=== PATIENT | male | born 1945 | race Two or more races ===

== ENCOUNTER 2016-12-26 10:26 | Emergency (ER) | payer MEDICARE, MEDICAID ==
[~2016-12-26] VITALS: Ht 165.1 cm; Wt 68.0 kg
[2016-12-26 10:57] LABS: BASOPHILS % (AUTO) 1.5 % (0.0-2.0); EOSINOPHILS % (AUTO) 8.1 % (0.0-3.0); LYMPHOCYTES % (AUTO) 41.2 % (20.0-45.0); MEAN CORPUSCULAR HEMOGLOBIN 29.6 PG (27.0-31.0); MEAN CORPUSCULAR HGB CONC 33.5 G/DL (32.0-36.0); MEAN CORPUSCULAR VOLUME 88 FL (80-99); MEAN PLATELET VOLUME 6.4 FL (6.5-10.1); MONOCYTES % (AUTO) 9.5 % (1.0-10.0); NEUTROPHILS % (AUTO) 39.7 % (45.0-75.0); PLATELET COUNT 217 K/UL (150-450); RED BLOOD COUNT 3.33 M/UL (4.70-6.10); RED CELL DISTRIBUTION WIDTH 12.3 % (11.6-14.8); WHITE BLOOD COUNT 3.5 K/UL (4.8-10.8)
[2016-12-26 11:12] LABS: TROPONIN I < 0.30 ng/mL (<=0.30)
[2016-12-26 11:15] VITALS: BP 128/48
[2016-12-26 11:15] LABS: ALANINE AMINOTRANSFERASE 13 U/L (3-41); ALBUMIN/GLOBULIN RATIO 1.8 (1.0-2.7); ANION GAP 16 (5-15); ASPARTATE AMINO TRANSFERASE 24 U/L (5-40); CALCIUM 9.6 mg/dL (8.6-10.2); CARBON DIOXIDE 22 mEQ/L (20-30); CHLORIDE 87 mEQ/L (98-107); CREATININE 1.7 mg/dL (0.7-1.2); HEMOLYSIS 9; POTASSIUM 3.5 mEQ/L (3.4-4.9); SODIUM 125 mEQ/L (135-145); TOTAL PROTEIN 6.8 g/dL (6.6-8.7)
[2016-12-26 11:18] LABS: REFLEX LACTIC ACID YES OR NO YES
--- NOTE | 2016-12-26 11:20 | Diagnostic Imaging Report ---
Indications: Mental status Technique: Continuous helical CT imaging of the brain was performed with automatic exposure control on a Siemens sensation [address] scanner. Axial and coronal images were reconstructed at 5 mm slice thickness and interval. CTDI volume(s): 70 mGy Total DLP: 1340 mGy-cm Findings: Comparison: None Mild low attenuation is present in the bilateral periventricular white matter. Ventricles, cisterns, and sulci are diffusely prominent. No evidence of mass or hemorrhage, mass effect, midline shift, hydrocephalus, or increased intracranial pressure. Bone window images are unremarkable. Mild mucoperiosteal thickening scattered throughout paranasal sinuses. Bilateral mastoid air cells hypoplastic.. IMPRESSION: No evidence of acute intracranial pathology Bilateral cerebral periventricular white matter low attenuation, nonspecific, likely chronic microvascular ischemic in nature. Age-appropriate atrophy. Mild sinus disease The CT scanner at [facility] is accredited by the [employer] and the scans are performed using protocols designed to limit radiation exposure to as low as reasonably achievable to attain images of sufficient resolution adequate for diagnostic evaluation.
[2016-12-26 11:26] LABS: CKMB 3.7 ng/mL (< 6.7)
--- NOTE | 2016-12-26 12:06 | Diagnostic Imaging Report ---
\H\CT THORAX\N\ Indications: Chest pain Technique: Continuous helical CT imaging of the thorax was performed with automatic exposure control on a Siemens sensation [address] scanner. Axial images were reconstructed at 5 mm slice thickness and interval. Coronal images were reconstructed at 5 mm slice thickness. No IV contrast was administered secondary to elevated creatinine level. CTDI volume(s): 15 mGy Total DLP: 1002 mGy-cm (Includes CT abdomen pelvis) Findings: Comparison: None Lack of IV contrast limits evaluation of vascular structures. Sternal wires, cardiomediastinal surgical clips are present. Scattered arterial mural calcifications including coronary artery involvement. Heart is normal in size. Proximal segment main pulmonary artery is prominent. Distal segment, right and left pulmonary arteries are normal in caliber and configuration. Ascending aorta maximum diameter 42 mm. Arch, descending aorta normal caliber. No pericardial abnormality. No obvious mediastinal or hilar enlarged lymph nodes. Lungs normally, symmetrically inflated. Irregular pleural-based linear densities and dependent portions of both lungs. 10 mm smoothly marginated noncalcified nodule superior segment right lower lobe (7-56). No pleural abnormality. Chest wall soft tissues nonfocal. Disc margin osteophytes lower thoracic spine. IMPRESSION: No evidence of acute thoracic pathology, limited as described 10 mm noncalcified nodules for segment right lower lobe. Per Fleischner Society recommendations, followup CT scan in 3 months and/or PET-CT scan recommended. Bilateral pulmonary lower lobe subsegmental atelectasis versus scarring Previous open heart surgery Segmental prominence proximal main pulmonary artery, nonspecific. Echocardiographic correlation suggested. 4.2 cm fusiform aneurysmal dilation of the ascending aorta Arteriosclerosis Degenerative spondylosis \H\CT ABDOMEN PELVIS\N\ Indications: Abdominal pain Technique: Continuous helical CT imaging of the abdomen and pelvis was performed with automatic exposure control on a Siemens sensation [address] scanner. Axial, coronal, sagittal images reconstructed at 3 mm slice thickness. No IV contrast was administered due to elevated creatinine level. No oral was administered per requesting physician's order, despite no contraindications listed. CTDI volume(s): As above mGy Total DLP: As above mGy-cm Findings: Comparison: None Lack of oral and IV contrast limits evaluation. Stomach mildly distended with air-fluid level, calcific foci in dependent portion of lumen likely representing ingested tablets. Remainder of tract nondilated throughout. Normal caliber appendix contains high attenuation foci, otherwise unremarkable. Multiple right colonic diverticula. Segments of colon collapsed, limiting evaluation. No other obvious mural thickening, adjacent stranding, extraluminal gas or fluid collections. Prominent arterial mural calcifications. Aortobifemoral bypass graft. Vascular patency indeterminate. Urinary bladder collapsed.. Mural thickening not excludable. Paraumbilical ventral, small left inguinal hernias containing only fat. 4 x 2.5 x 2.5 cm low-attenuation mass versus fluid collection in right inguinal canal. Remainder visualized pelvic anatomy demonstrates no other obvious acute abnormality. Disc marginal osteophytes throughout lumbar spine. Multilevel disc space narrowing with vacuum phenomenon. IMPRESSION: No evidence of acute abdominopelvic disease, with limitation as described. Subtle but potentially significant abnormalities may be missed. Repeat CT scan with full oral and IV contrast preparation recommended for more complete evaluation, as clinically indicated Prior aortobifemoral bypass graft surgery, patency indeterminate Arteriosclerosis, patency indeterminate Colonic diverticulosis Appendiceal retained barium vers -- us appendicoliths. No acute inflammation. Apparent mural thickening of urinary bladder--underdistention versus hypertrophy versus cystitis Right inguinal canal mass most likely undescended/retracted testis. Correlate clinically. Degenerative spondylosis Small fat-containing ventral, inguinal hernias
[2016-12-26 13:10] VITALS: BP 148/91
[2016-12-26 13:23] LABS: APPEARANCE,URINE CLEAR; KETONES,URINE NEGATIVE (NEGATIVE); LEUKOCYTE ESTERASE ,URINE 1+ (NEGATIVE); NITRITE,URINE NEGATIVE (NEGATIVE); PH,URINE 8 (4.5-8.0); PROTEIN,URINE 2+ (NEGATIVE); UROBILINOGEN,URINE NORMAL MG/DL (0.0-1.0)
[2016-12-26] MEDS ORDERED: Albuterol ud Inhalation HHN PRN (13:30)
[2016-12-26] MEDS ORDERED: Morphine Sulfate 4mg/ml Inj IVP PRN (13:30)
[2016-12-26 13:33] LABS: BACTERIA,URINE FEW /HPF; RBC,URINE 0-2 /HPF (0 - 0); SQUAMOUS EPITHELIAL CELL,UR OCCASIONAL /LPF (NONE/OCC)
--- NOTE | 2016-12-26 13:57 | Emergency Room Report ---
History of Present Illness General Chief Complaint: Altered Mental Status Source: Patient Present Illness HPI 71-year-old male presents ED for evaluation. Per EMS patient was found diaphoretic and altered on the bus today. Patient is a poor historian. Does not endorse chest pain or shortness of breath. Patient states he feels weak. Denies fevers or chills. No other aggravating or relieving factors. Denies any other associated symptoms Allergies: Coded Allergies: UNABLE TO ASSESS (Unverified , 12/26/16) Patient History Past Medical History: none Past Surgical History: none Pertinent Family History: none Social History: Denies: alcohol use, drug use, smoking Immunizations: UTD Reviewed Nursing Documentation: PMH: Agreed, PSxH: Agreed Nursing Documentation-PMH Past Medical History Deferred: Pt Cognitively Impaired Review of Systems All Other Systems: negative except mentioned in HPI Physical Exam Vital Signs Date Time Temp Pulse Resp B/P Pulse Ox O2 Delivery O2 Flow Rate FiO2 12/26/16 10:23 97.3 50 16 103/61 99 Nasal Cannula 2.0 Sp02 EP Interpretation: reviewed, normal General Appearance: no apparent distress, alert, GCS 15, non-toxic Head: normocephalic, atraumatic Eyes: bilateral eye PERRL, bilateral eye normal inspection ENT: hearing grossly normal, normal pharynx, no angioedema, normal voice Neck: full range of motion, supple/symm/no masses Respiratory: chest non-tender, lungs clear, normal breath sounds, speaking full sentences Cardiovascular #1: regular rate, rhythm, no edema Cardiovascular #2: 2+ carotid (R), 2+ carotid (L), 2+ radial (R), 2+ radial (L) , 2+ dorsalis pedis (R), 2+ dorsalis pedis (L) Gastrointestinal: normal bowel sounds, non tender, soft, non-distended, no guarding, no rebound Rectal: deferred Genitourinary: normal inspection, no CVA tenderness Musculoskeletal: back normal, gait/station normal, normal range of motion, non- tender Neurologic: alert, oriented x3, responsive, motor strength/tone normal, sensory intact, speech normal Psychiatric: judgement/insight normal, memory normal, mood/affect normal, no suicidal/homicidal ideation Reflexes: 3+ bicep (R), 3+ bicep (L), 3+ tricep (R), 3+ tricep (L), 3+ knee (R) , 3+ knee (L) Skin: normal color, no rash, warm/dry, well hydrated Lymphatic: no adenopathy Medical Decision Making Diagnostic Impression: Primary Impression: Altered mental status Qualified Codes: R41.82 - Altered mental status, unspecified Additional Impressions: Bradycardia Sepsis Qualified Codes: A41.9 - Sepsis, unspecified organism Renal insufficiency ER Course Hospital Course 71-year-old male presents ED complaining of diaphoresis, altered Differential diagnoses include: NH/unstable angina, contusion, muscle strain, PTX, rib fracture Clinical course Patient placed on stretcher. on manager animation. After initial history and physical I ordered labs, EKG, chest x-ray, IVFs labs reviewed- leukopenia noted, Hb/HCt stable, BUN/Cr elevated ,trop negative, BNP ok, lactic elevated EKG - sinus bradycardia with 1st degree av block Chest x-ray- unremarkable CT head - ok CT Chest/abd/Pelvis ok 30cc/kg fluid bolus given. abx given. Case discussed with Dr. Silva and he agreed to accept the patient to his service for further care and support I. I feel this is a highly complex case requiring extensive working including EKG/Rhythm strip, Xray/CT/US, Blood/urine lab work, repeat exams while in ED, and administration of strong opiates/narcotics for pain control, admission to hospital or close patient follow up. Diagnosis - AMS, bradycardia, sepsis, renal insufficency admitted to telemetry in serious condition Labs Test 12/26/16 10:15 12/26/16 10:30 12/26/16 11:00 12/26/16 13:00 Lactic Acid Level 2.40 mmol/L (0.66-2.22) 2.60 mmol/L (0.66-2.22) White Blood Count 3.5 K/UL (4.8-10.8) Red Blood Count 3.33 M/UL (4.70-6.10) Hemoglobin 9.9 G/DL (14.2-18.0) Hematocrit 29.4 % (42.0-52.0) Mean Corpuscular Volume 88 FL (80-99) Mean Corpuscular Hemoglobin 29.6 PG (27.0-31.0) Mean Corpuscular Hemoglobin Concent 33.5 G/DL (32.0-36.0) Red Cell Distribution Width 12.3 % (11.6-14.8) Platelet Count 217 K/UL (150-450) Mean Platelet Volume 6.4 FL (6.5-10.1) Neutrophils (%) (Auto) 39.7 % (45.0-75.0) Lymphocytes (%) (Auto) 41.2 % (20.0-45.0) Monocytes (%) (Auto) 9.5 % (1.0-10.0) Eosinophils (%) (Auto) 8.1 % (0.0-3.0) Basophils (%) (Auto) 1.5 % (0.0-2.0) Sodium Level 125 mEQ/L (135-145) Potassium Level 3.5 mEQ/L (3.4-4.9) Chloride Level 87 mEQ/L (98-107) Carbon Dioxide Level 22 mEQ/L (20-30) Anion Gap 16 (5-15) Blood Urea Nitrogen 24 mg/dL (7-23) Creatinine 1.7 mg/dL (0.7-1.2) Estimat Glomerular Filtration Rate mL/min (>60) Glucose Level 147 mg/dL (74-106) Calcium Level 9.6 mg/dL (8.6-10.2) Total Bilirubin 0.5 mg/dL (0.0-1.2) Aspartate Amino Transf (AST/SGOT) 24 U/L (5-40) Alanine Aminotransferase (ALT/SGPT) 13 U/L (3-41) Alkaline Phosphatase 62 U/L (40-129) Total Creatine Kinase 287 U/L (38-174) Creatine Kinase MB 3.7 ng/mL (< 6.7) Creatine Kinase MB Relative Index 1.2 Troponin I < 0.30 ng/mL (<=0.30) Pro-B-Type Natriuretic Peptide 384 pg/mL (0-125) Total Protein 6.8 g/dL (6.6-8.7) Albumin 4.4 g/dL (3.5-5.2) Globulin 2.4 g/dL Albumin/Globulin Ratio 1.8 (1.0-2.7) Urine Color Pale yellow Urine Appearance Clear Urine pH 8 (4.5-8.0) Urine Specific [place] 1.010 (1.005-1.035) Urine Protein 2+ (NEGATIVE) Urine Glucose (UA) Negative (NEGATIVE) Urine Ketones Negative (NEGATIVE) Urine Occult Blood Negative (NEGATIVE) Urine Nitrite Negative (NEGATIVE) Urine Bilirubin Negative (NEGATIVE) Urine Urobilinogen Normal MG/DL (0.0-1.0) Urine Leukocyte Esterase 1+ (NEGATIVE) Urine RBC 0-2 /HPF (0 - 0) Urine WBC 2-4 /HPF (0 - 0) Urine Squamous Epithelial Cells Occasional /LPF Urine Bacteria Few /HPF (NONE) EKG Diagnostic Results Rate: bradycardiac Rhythm: NSR ST Segments: no acute changes ASA given to the pt in ED: No Rhythm Strip Diag. Results EP Interpretation: yes Rhythm: NSR, no PVC's, no ectopy Chest X-Ray Diagnostic Results Chest X-Ray Diagnostic Results : Chest X-Ray Ordered: Yes # of Views/Limited/Complete: 1 View Indication: Other - altered EP Interpretation: Yes Interpretation: no consolidation, no effusion, no pneumothorax, no acute cardiopulmonary disease Impression: No acute disease Interpreting ER Provider: electronically signed by Kian Juárez MD CT/MRI/US Diagnostic Results CT/MRI/US Diagnostic Results #1: Imaging Test Ordered: CT Chest/Abd/Pelvis Impression no acute process CT/MRI/US Diagnostic Results #2: Imaging Test Ordered: CT head Impression no acute process Last Vital Signs Date Time Temp Pulse Resp B/P Pulse Ox O2 Delivery O2 Flow Rate FiO2 12/26/16 11:15 97.3 52 16 128/48 100 Nasal Cannula 2.0 Status: improved Disposition: ADMITTED INPATIENT Condition: Serious Referrals: NOT CHOSEN DARION/,REFERRING (PCP) KIAN JUÁREZ M.D. Dec 26, 2016 13:57
[2016-12-26 15:26] VITALS: BP 192/70
[2016-12-26 15:29] VITALS: BP 192/70
[2016-12-26] MEDS ORDERED: Heparin 5000 units/ml inj SUBQ SCH (21:00)
--- NOTE | 2016-12-27 12:03 | Cardiology Report ---
APPROVED REPORT EKG Measurement Heart [id number] Sinus bradycardia with 1st degree AV block Right bundle branch block Inferior infarct, age undetermined Abnormal ECG
== END 2016-12-26 15:44 | disposition left against medical advice (07) ==
LOC: EDBD 10:26 → EMR 11:25 → EDBEDREQ 12:53 → UNDOADMIN 13:18 → 2E 13:18 → CANBEDREQ 15:30 → EMR 15:44
DX: R41.82 Altered mental status, unspecified (principal); R00.1 Bradycardia, unspecified; A41.9 Sepsis, unspecified organism; N28.9 Disorder of kidney and ureter, unspecified; J32.9 Chronic sinusitis, unspecified; I71.2 Thoracic aortic aneurysm, without rupture; M47.816 Spondylosis without myelopathy or radiculopathy, lumbar region
CPT/HCPCS: 36415; 70450; 71010; 71250; 74176; 80053; 81003; 82550; 82553; 83605; 83880; 84484; 85025; 87040; 93005; 96360; 96361; 96374; 99284; J1956